=== PATIENT | female | born 1960 | race Caucasian/White ===

== ENCOUNTER → 2020-05-31 | Outpatient (CLI) | payer OTHER ==
[~2020-05-31] MED LIST: ATENOLOL25 MG PO; CYANOCOBAL1000 MCG/1 INJ; ECOTRIN81 MG PO; FERROUS SULFAT325 M2 PO; FLAGYL500 MG PO; FOLIC ACID 1 MG1 MG PO; FOLIC ACID1 MG PO; LEVAQUIN750 MG PO; LEVOXYL75 MCG PO; LIPITOR TAB 2020 MG PO; LORTAB 5-325 M1 EACH PO; LOVENOX100 MG/1 M SQ; LOVENOX60 MG/0.6 SC; NORCO 10-325 T1 EACH PO; NORCO 5-325 TA1 EACH PO; ONDANSETRON HCL4 MG PO; PRINIVIL20 MG PO; QUESTRAN LIGHT 44 GM PO; VISTARIL25 MG PO; VIT B12 INJ; VITAMIN B-1100 M1 PO; VITAMIN D250000 UNIT PO; ZOFRAN4 MG PO; [UNRECOGNIZED DRUG - OTHER] TOP
== END ==
LOC: KOH-I 10:26
DX: M25.562 Pain in left knee (principal); M25.762 Osteophyte, left knee
CPT/HCPCS: 73560